=== PATIENT | male | born 1970 | race Caucasian/White ===

== ENCOUNTER 2019-07-21 16:04 | Observation (INO) | payer OTHER ==
[~2019-07-21] VITALS: Ht 182.9 cm; Wt 98.0 kg
[2019-07-21] MEDS: HYDROmorphone 2 MG/ML, 1ML IVPush PRN ×2 (16:14→16:55)
[2019-07-21] MEDS ORDERED: ONDANSETRON 2MG/ML, 2ML IVPush ONE (16:30)
[2019-07-21] MEDS ORDERED: PLEASE ENTER ALLERGIES MC SCH (16:30)
[2019-07-21] MEDS ORDERED: SODIUM CHLORIDE 0.9% 1,000ML IVBOLUS ONE (16:30)
[2019-07-21] MEDS ORDERED: SODIUM CHLORIDE FLUSH 10ML SYR IVF ONE (16:30)
[2019-07-21 16:37] LABS: BASOPHILS # (AUTO) 0.03 x10^3/uL (0-0.1); BASOPHILS % (AUTO) 0 % (0-1); EOSINOPHILS # (AUTO) 0.15 x10^3/uL (0-0.4); EOSINOPHILS % (AUTO) 1 % (1-7); LYMPHOCYTES # (AUTO) 1.62 x10^3/uL (1-3.4); LYMPHOCYTES % (AUTO) 13 % (22-44); MD NO; MEAN CORPUSCULAR HEMOGLOBIN 32.2 pg (27.5-34.5); MEAN CORPUSCULAR HGB CONC 34.1 g/dL (33.2-36.2); MEAN CORPUSCULAR VOLUME 94.5 fL (81-97); MEAN PLATELET VOLUME 7.4 fL (7.4-10.4); MONOCYTES # (AUTO) 0.61 x10^3/uL (0.2-0.8); MONOCYTES % (AUTO) 5 % (2-9); NEUTROPHILS # (AUTO) 10.39 x10^3/uL (1.8-6.8); NEUTROPHILS % (AUTO) 81 % (42-75); PLATELET COUNT 239 x10^3/uL (130-400); RED BLOOD COUNT 4.88 x10^6/uL (4.38-5.82); RED CELL DISTRIBUTION WIDTH 12.5 % (9.4-14.8)
[2019-07-21 16:52] LABS: ALANINE AMINOTRANSFERASE 32 U/L (12-78); ALBUMIN 4.1 g/dL (3.4-5.0); ANION GAP 8 mmol/L (5-15); CALCIUM 8.4 mg/dL (8.5-10.1); CHLORIDE 105 mmol/L (98-107); CREATININE 1.05 mg/dL (0.7-1.3)
[2019-07-21 16:54] LABS: ALKALINE PHOSPHATASE 57 U/L (45-117); BILIRUBIN,TOTAL 0.6 mg/dL (0.2-1.0); TOTAL PROTEIN 7.8 g/dL (6.4-8.2)
--- NOTE | 2019-07-21 16:59 | NUR ---
PT CAME IN [place] RLQ ABD PAIN. SAYS HE THOUGHT IT WAS FROM SPICY FOOD HE AT FOR BREAKFAST AT AROUND 0730. HASNT EATEN SINCE THEN. BUT THE PAIN HAS NOT GONE AWAY. PT IS ACCOMPANIED BY GIRLFRIEND. RESTING IN [facility]. MEDICATED PER MAY
[2019-07-21 17:05] LABS: MICROSCOPIC NOT IND
[2019-07-21 17:21] LABS: CULTURE INDICATED? NO
[2019-07-21] MEDS ORDERED: CEFOTETAN PMX 1GM/50ML 50 ML ONE (17:35)
[2019-07-21] MEDS ORDERED: CEFOTETAN PMX 1GM/50ML 50 ML IV ONE (18:00)
[2019-07-21] MEDS ORDERED: OXYcodone 5 MG/5 ML ORAL.SOL UDC PO PRN (18:30)
[2019-07-21] MEDS ORDERED: PROMETHAZINE 25 MG/ML, 1ML IV PRN (18:30)
[2019-07-21] MEDS ORDERED: LABETALOL 5MG/ML, 20ML IV PRN (18:30)
[2019-07-21] MEDS ORDERED: BUPIVACAINE/PF-EPI 0.5% 1:200K ONE (18:30)
[2019-07-21] MEDS ORDERED: HYDROmorphone 2 MG/ML, 1ML IVPush PRN (18:30)
[2019-07-21] MEDS ORDERED: HALOPERIDOL 5 MG/ML IV PRN (18:30)
[2019-07-21] MEDS ORDERED: MEPERIDINE/PF 25MG/ML,1ML IVPush PRN (18:30)
[2019-07-21] MEDS ORDERED: hydrALAzine 20 MG/ML, 1ML IV PRN (18:30)
[2019-07-21] MEDS ORDERED: FENTANYL PF 250 MCG/5ML ONE (18:35)
[2019-07-21] MEDS ORDERED: PROPOFOL 10 MG/ML, 20ML ONE (19:15)
[2019-07-21] MEDS ORDERED: ROCURONIUM 10MG/ML,5ML ONE (19:15)
[2019-07-21] MEDS ORDERED: SUCCINYLCHOLINE 20 MG/ML, 10ML ONE (19:15)
[2019-07-21] MEDS ORDERED: NEOSTIGMINE 1 MG/ML, 10ML ONE (19:15)
[2019-07-21] MEDS ORDERED: GLYCOPYRROLATE 0.2MG/1ML, 5ML ONE (19:15)
[2019-07-21] MEDS ORDERED: DEXAMETHASONE 4 MG/ML, 1ML ONE (19:15)
[2019-07-21] MEDS ORDERED: ONDANSETRON 2MG/ML, 2ML ONE (19:15)
[2019-07-21] MEDS ORDERED: CEFAZOLIN 1,000 MG ONE (19:15)
[2019-07-21] MEDS ORDERED: MEPERIDINE/PF 25MG/ML,1ML ONE (19:45)
[2019-07-21] MEDS ORDERED: OXYcodone 5 MG/5 ML ORAL.SOL UDC ONE (19:52)
[2019-07-21] MEDS ORDERED: FENTANYL PF 100 MCG/2ML ONE (19:52)
[2019-07-21] MEDS: FENTANYL PF 100 MCG/2ML IV PRN ×2 (19:57→20:07)
[2019-07-21] MEDS ORDERED: HYDROmorphone 1 MG/ML, 1ML INJ ONE (20:00)
[2019-07-21 21:15] VITALS: BP 119/74
[2019-07-21] MEDS ORDERED: OXYC-302 PO (22:53)
[2019-07-21] MEDS: KETOROLAC 30 MG/1 ML IV PRN (23:15)
[2019-07-21] MEDS: LACTATED RINGERS 1,000 ML IV SCH (23:30)
[2019-07-21] MEDS ORDERED: MORPHINE SULFATE 4 MG/ML, 1ML IVPush PRN (23:30)
[2019-07-21] MEDS ORDERED: ONDANSETRON 2MG/ML, 2ML IVPush PRN (23:30)
[2019-07-22] VITALS: BP 123/82
[2019-07-22] MEDS: OXYcodone/APAP 5/325MG TABLET PO PRN ×2 (01:14→09:11)
[2019-07-22 02:03] VITALS: BP 115/72
[2019-07-22 04:37] VITALS: BP 114/73
[2019-07-22] MEDS: KETOROLAC 30 MG/1 ML IV PRN (05:38)
[2019-07-22 06:35] VITALS: BP 116/78
[2019-07-22] MEDS ORDERED: ENOXAPARIN 30 MG/0.3 ML SQ SCH (08:00)
[2019-07-22] MEDS: LACTATED RINGERS 1,000 ML IV SCH (08:36)
[2019-07-22 12:54] VITALS: BP 106/65
== END 2019-07-22 09:48 | disposition home or self-care (01) ==
LOC: ED 17:26 → EDIP 17:51 → 4NE 20:50
PROVIDERS: ADMIT Surgery; ATTEND Surgery
DX: K35.30 Acute appendicitis with localized peritonitis, without perforation or gangrene (principal); K38.1 Appendicular concretions; K21.9 Gastro-esophageal reflux disease without esophagitis
CPT/HCPCS: 36415; 44970; 74177; 80053; 81003; 83690; 85025; 88304; 93005; 96365; 96375; 96376; 99285; G0378; J0330; J0690; J1100; J1170; J1885; J2175; J2405; J2704; J2710; J3010; J3490; J7030; 96366